=== PATIENT | female | born 1935 | race Caucasian/White ===

== ENCOUNTER 2016-09-03 23:10 | Observation (INO) ==
--- NOTE | 2016-09-04 00:43 | Emergency Department Note ---
Fall HPI - General Chief Complaint: Fall Stated Complaint: fell and hit head on the dresser Time Seen by Provider: 09/03/16 23:39 Source: patient, EMS Mode of arrival: EMS - History of Present Illness HPI Narrative: This patient has a peripheral neuropathy and says she's been getting weaker recently. She was being pushed in her walker last night and body gave out she fell hit the left side of her head against a dresser. He did not lose consciousness. She does state she's become too weak to be at home. She wants to stay in the hospital and perhaps go to a rehabilitation center. Complaint: fall Onset (ago): minute(s) Fall From: standing Fall Witnessed: yes, by family Place Fall Occurred: home Loss of Consciousness: none Prolonged Down Time?: no Symptoms Prior to Fall: other (muscle weakness) Location of injury: head Quality: dull, aching Associated symptoms (after fall): Reports: weakness - Related Data Home Medications Medication Instructions Recorded Confirmed aspirin 81 mg tablet,delayed 81 mg PO QDAY tab 12/11/14 08/30/16 release Omeprazole [Prilosec] 20 mg PO BIDAC 05/27/15 08/30/16 Melatonin 3 mg Tablet 3 mg PO HS 10/25/15 08/30/16 cholecalciferol (vitamin D3) 2,000 2,000 unit PO QDAY cap 08/22/16 08/30/16 unit capsule cyanocobalamin (vit B-12) 1,000 1,000 mcg PO QDAY 08/22/16 08/30/16 mcg tablet Previous Rx's Medication Instructions Recorded ipratropium-albuterol 0.5 mg-3 3 ml INHALATION Q4HP PRN #120 11/02/15 mg(2.5 mg base)/3 mL nebulization ampul.neb soln buspirone 10 mg tablet 10 mg PO BID #60 tab 02/04/16 levothyroxine 150 mcg tablet 150 mcg PO QDAY 90 Days 04/11/16 fenofibrate 160 mg tablet 160 mg PO QDAY 90 Days 05/09/16 diltiazem ER 360 mg 360 mg PO QDAY 30 Days 06/14/16 capsule,extended release Motorized power wheel chair #1 each 07/05/16 oxybutynin chloride ER 5 mg 5 mg PO QDAY #30 tab 07/12/16 tablet,extended release 24 hr estradiol 1 mg tablet 1 mg PO .2xweekly #24 tab 07/27/16 O2 Rack #1 each 08/01/16 sodium polystyrene sulfonate oral 30 g PO QDAY PRN #160 g 08/22/16 powder albuterol sulfate 2.5 mg/3 mL 2.5 mg CONTINUOUS NEBULIZATION Q4H 08/28/16 (0.083 %) solution for nebulization PRN 30 Days hydrocodone 5 mg-acetaminophen 325 1 tab PO Q6H PRN #100 tab 08/28/16 mg tablet lorazepam 0.5 mg tablet 0.5 mg PO BID PRN #60 tab 08/31/16 Allergies Allergy/AdvReac Type Severity Reaction Status Date / Time pregabalin [From Lyrica] Allergy Unknown Verified 08/30/16 15:07 gabapentin AdvReac "loopy" Verified 08/30/16 15:07 Review of Systems Constitutional: Denies: fever Eyes: Denies: eye pain ENT ED: Denies: ear pain Cardiovascular: Denies: chest pain Respiratory: Denies: cough Gastrointestinal: Denies: abdominal pain, nausea Genitourinary: Denies: urgency Musculoskeletal: Denies: back pain Integumentary: Denies: rash Neurological: Reports: headache, weakness Fall PMH - Past Medical History Medical history: Reports: atrial fibrillation, COPD, diabetes, GERD, hyperlipidemia, hypertension, osteoporosis, peripheral artery disease, renal disease, thyroid disease, valvular heart disease, other (recurrent esophageal stricture, aortic stenosisCOPD, esophageal motility disorder, anxiety, esophageal stricture, 3. CK D, osteoarthritis) Surgical history ED: Reports: appendectomy, cataract, colectomy, herniorrhaphy, knee replacement, pacemaker/AICD (carpal tunnel), NACHO/BSO, thyroidectomy, tonsillectomy, other (lung lobectomy) Psychiatric history: Reports: anxiety [employer] history: Reports: non-contributory - Social History Alcohol use: Reports: None Drug use: Reports: none Physical Exam - General Limitations: no limitations General appearance: alert, in no apparent distress - Head Head exam: atraumatic, normocephalic - Eye Eye exam: Present: normal appearance, PERRL, EOMI - ENT ENT exam: normal exam, normal oropharynx - Neck Neck exam: Present: normal inspection - Chest Chest inspection: Present: normal inspection - Respiratory Respiratory exam: Present: normal lung sounds bilaterally - Cardiovascular Cardiovascular exam: Present: regular rate, normal heart sounds - Abdominal Exam Abdominal exam: Present: soft. Absent: distention, tenderness - Neurological Exam Neurological exam: Present: alert, oriented X3 - Psychiatric Psychiatric exam: Present: normal affect, normal mood - Skin Skin exam: Present: warm, dry, intact Course Vital Signs Temperature 97.8 F 09/03/16 23:11 Pulse Rate 103 H 09/03/16 23:11 Respiratory Rate 18 09/03/16 23:11 Blood Pressure 163/66 09/03/16 23:11 Pulse Oximetry (%) 100 09/03/16 23:11 Temperature 97.8 F 09/03/16 23:11 Pulse Rate 96 H 09/04/16 08:48 Respiratory Rate 20 09/04/16 08:48 Blood Pressure 161/73 09/04/16 08:48 Pulse Oximetry (%) 100 09/04/16 08:48 Fall - [facility] Narrative Medical decision making narrative: This patient felt she was too weak to go home. She thinks her peripheral neuropathy is progressing. She does have a UTI and is anemic though that may be chronic. At this point utilization review and is trying to decide if she meets admission criteria.Final disposition per Dr. Garcia. - Lab Data Lab results reviewed: Yes I reviewed the patient's lab results. Result diagrams: 09/04/16 00:57 09/04/16 00:57 Lab Results 09/04/16 09/04/16 09/04/16 Range/Units 00:57 00:57 00:57 WBC 8.9 (4.5-11.0) K/mcL RBC 2.64 L (4.00-5.20) M/mcL Hgb 8.4 L (12.0-15.0) g/dL Hct 27.0 L (36.0-48.0) % MCV 102.4 H (80.0-100.0) fL MCH 31.8 (26.0-34.0) pg MCHC 31.1 (31.0-36.0) g/dL RDW 15.6 H (11.5-14.5) % Plt Count 198 (140-440) K/mcL MPV 8.4 (7.4-10.4) fL Gran % 76.2 (38.0-78.0) % Lymph % (Auto) 17.0 (15.5-49.0) % [place] % (Auto) 5.9 (1.0-9.0) % Eos % (Auto) 0.7 (0.0-7.0) % Baso % (Auto) 0.2 (0.0-2.0) % Gran # 6.8 (1.8-8.0) K/mcL Lymph # 1.5 (1.5-4.8) K/mcL [place] # 0.5 (0.1-0.9) K/mcL Eos # 0.1 (0.0-0.7) K/mcL Baso # 0 (0.0-0.3) K/mcL Sodium 140 (133-145) mmol/L Potassium 4.4 (3.3-5.1) mmol/L Chloride 101 (96-108) mmol/L Carbon Dioxide 31 H (22-30) mmol/L Anion Gap 8.0 (8-16) BUN 14 (8-23) mg/dl Creatinine 0.9 (0.6-1.1) mg/dl GFR Calculation 59 Glucose 107 H (70-105) mg/dL Calcium 8.9 (8.6-10.4) mg/dl Total Bilirubin 0.2 (0.0-1.0) mg/dL AST 19 (0-37) U/l ALT 9 (0-40) U/l Alkaline Phosphatase 47 (39-117) U/L Troponin T < 0.01 (0-0.03) ng/ml Total Protein 5.8 L (5.9-8.4) gm/dL Albumin 3.4 (3.2-5.2) gm/dL Globulin 2.4 (2.2-3.7) gm/dL Albumin/Globulin Ratio 1.4 (1.0-2.3) Vitamin B12 (243-894) pg/ml Folate (4.2-19.9) ng/mL Urine Color Urine Appearance Urine pH (5.0-9.0) Ur Specific [place] (1.000-1.035) Urine Protein (NEG) mg/dL Urine Glucose (UA) (NEG) mg/dL Urine Ketones (NEG) mg/dL Urine Occult Blood (<0.03) mg/dL Urine Nitrate (NEG) Urine Bilirubin (NEG) mg/dL Urine Urobilinogen (NEG) mg/dL Ur Leukocyte Esterase (NEG) /uL Urine RBC (0-1) /hpf Urine WBC (0-4) /hpf Ur Squamous Epith Cells (0-4) /hpf Ur Transition Epith Cell (0-2) /hpf Urine Bacteria (0) /hpf Urine Mucus (0) /hpf Ur Culture Indicated? 09/04/16 09/04/16 09/04/16 Range/Units 01:22 07:54 07:54 WBC (4.5-11.0) K/mcL RBC (4.00-5.20) M/mcL Hgb (12.0-15.0) g/dL Hct (36.0-48.0) % MCV (80.0-100.0) fL MCH (26.0-34.0) pg MCHC (31.0-36.0) g/dL RDW (11.5-14.5) % Plt Count (140-440) K/mcL MPV (7.4-10.4) fL Gran % (38.0-78.0) % Lymph % (Auto) (15.5-49.0) % [place] % (Auto) (1.0-9.0) % Eos % (Auto) (0.0-7.0) % Baso % (Auto) (0.0-2.0) % Gran # (1.8-8.0) K/mcL Lymph # (1.5-4.8) K/mcL [place] # (0.1-0.9) K/mcL Eos # (0.0-0.7) K/mcL Baso # (0.0-0.3) K/mcL Sodium (133-145) mmol/L Potassium (3.3-5.1) mmol/L Chloride (96-108) mmol/L Carbon Dioxide (22-30) mmol/L Anion Gap (8-16) BUN (8-23) mg/dl Creatinine (0.6-1.1) mg/dl GFR Calculation Glucose (70-105) mg/dL Calcium (8.6-10.4) mg/dl Total Bilirubin (0.0-1.0) mg/dL AST (0-37) U/l ALT (0-40) U/l Alkaline Phosphatase (39-117) U/L Troponin T (0-0.03) ng/ml Total Protein (5.9-8.4) gm/dL Albumin (3.2-5.2) gm/dL Globulin (2.2-3.7) gm/dL Albumin/Globulin Ratio (1.0-2.3) Vitamin B12 1725 H (243-894) pg/ml Folate 13.5 (4.2-19.9) ng/mL Urine Color Yellow Urine Appearance Hazy Urine pH 5.0 (5.0-9.0) Ur Specific [place] 1.009 (1.000-1.035) Urine Protein Neg (NEG) mg/dL Urine Glucose (UA) Negative (NEG) mg/dL Urine Ketones Neg (NEG) mg/dL Urine Occult Blood 0.2 A (<0.03) mg/dL Urine Nitrate Pos A (NEG) Urine Bilirubin Neg (NEG) mg/dL Urine Urobilinogen Neg (NEG) mg/dL Ur Leukocyte Esterase 500 A (NEG) /uL Urine RBC 3 H (0-1) /hpf Urine WBC 77 H (0-4) /hpf Ur Squamous Epith Cells 12 H (0-4) /hpf Ur Transition Epith Cell 2 (0-2) /hpf Urine Bacteria Few A (0) /hpf Urine Mucus Few (0) /hpf Ur Culture Indicated? No - Radiology Data Radiology results reviewed: Yes I reviewed the patient's radiology results. (CT of head was negative) Disposition Clinical Impression: Contusion, Urinary tract infection, Anemia Disposition: Home, Self-Care Condition: Good Instructions: Contusion in Adults (ED) Referrals: Modesto Rivas MD [Primary Care Provider] - Time of Disposition: 00:43
[2016-09-04 01:39] LABS: Basophils # (Auto) 0 K/mcL (0.0-0.3); Basophils % (Auto) 0.2 % (0.0-2.0); Eosinophils # (Auto) 0.1 K/mcL (0.0-0.7); Eosinophils % (Auto) 0.7 % (0.0-7.0); Granulocytes % (Auto) 76.2 % (38.0-78.0); Lymphocytes # (Auto) 1.5 K/mcL (1.5-4.8); Mean Cell Volume 102.4 fL (80.0-100.0); Mean Corpuscular HGB Conc 31.1 g/dL (31.0-36.0); Mean Corpuscular Hemoglobin 31.8 pg (26.0-34.0); Monocytes # (Auto) 0.5 K/mcL (0.1-0.9); Monocytes % (Auto) 5.9 % (1.0-9.0); Platelet Count 198 K/mcL (140-440); RBC 2.64 M/mcL (4.00-5.20); Red Cell Distribution Width 15.6 % (11.5-14.5)
[2016-09-04 01:48] LABS: Appearance,Urine HAZY; Bacteria,Urine FEW /hpf (0); Bilirubin,Urine NEG (NEG); Color,Urine YELLOW; Glucose,Urine (UA) NEGATIVE (NEG); Leukocyte Esterase,Urine 500 /uL (NEG); Mucus,Urine FEW /hpf (0); Nitrate,Urine POS (NEG); Protein,Urine NEG (NEG); Specific Gravity,Urine 1.009 (1.000-1.035); Urine Blood 0.2 mg/dL (<0.03); Urine RBC 3 /hpf (0-1); Urine Squamous Epithelial Cell 12 /hpf (0-4); Urine Transitional Epi Cells 2 /hpf (0-2); Urine WBC 77 /hpf (0-4); Urobilinogen,Urine NEG (NEG)
[2016-09-04 02:01] LABS: ALT/SGPT 9 U/l (0-40); Albumin 3.4 gm/dL (3.2-5.2); Albumin/Globulin Ratio 1.4 (1.0-2.3); Alkaline Phosphatase 47 U/L (39-117); Blood Urea Nitrogen 14 mg/dl (8-23)
--- NOTE | 2016-09-04 05:51 | XRay Report ---
CLINICAL INFORMATION: Fell. Head injury. TECHNIQUE: Upright AP chest x-ray COMPARISON: Previous chest x-ray dated 10/26/2015 FINDINGS: No acute pulmonary parenchymal infiltrate. No focal abnormality. No pulmonary contusion. No interval change. Heart size and mediastinum are negative. No detectable rib fracture. No hemothorax or pneumothorax. IMPRESSION: No acute abnormality. No interval change Interpreted and Authenticated by: Diomedes Tobar 09/04/16
--- NOTE | 2016-09-04 06:36 | Cat Scan Report ---
CLINICAL INFORMATION: Head injury COMPARISON: None. TECHNIQUE: Axial noncontrast-enhanced images through the brain. FINDINGS: No acute intracranial hemorrhage. No subdural or epidural hematoma. No subarachnoid hemorrhage. No intra-axial hematoma. There is white matter abnormality consistent with microvascular ischemic change. No localized mass effect. No midline shift. No focal abnormality. Brainstem and cerebellum are negative. No calvarial lesions. No fracture. Skull base is negative. Basilar cisterns are normal. Examination was initially interpreted by [facility] IMPRESSION: 1. No acute posttraumatic abnormality. 2. White matter abnormality consistent with small vessel ischemic change. Interpreted and Authenticated by: Diomedes Tobar 09/04/16
[2016-09-04] MEDS ORDERED: LEVOFLOXACIN 500 MG/100 ML BAG IV ONE (07:41)
[2016-09-04 09:08] LABS: Vitamin B12 1725 pg/ml (243-894)
[2016-09-04] MEDS ORDERED: ACETAMINOPHEN 325 MG TABLET PO ONE (10:27)
[2016-09-04] MEDS ORDERED: ACETAMINOPHEN (PP) 160 MG/5 ML BOTTLE (#120) PO ONE (10:34)
--- NOTE | 2016-09-04 11:20 | Internal Med History&Physical ---
Medical - H&P: HPI Patient information: Note initiated : 09/04/16 at 11:16 am Service Date, if different from initiated Date: [] Patient: Lacey Green a 81 y/o F admitted on for Fall, Hit Head On [place]. Chief Complaint: [] History of present illness: Ms. Green is a 81 year old female with a fairly extensive past medical history , including type 2 diabetes with significant peripheral neuropathy. the patient has long-standing issues with numbness of her feet and legs up to as high as her thighs. She was treated with Lyrica in the past, but had a bad reaction to that. She says she was taking gabapentin, but stopped that because it was causingher to feel loopy. However her neuropathy pain got so bad that she did go back on it. she notes that over the last couple of months she's had increasing problems controlling her legs. She says they just seem to give out sometimes when she stands for too long. Yesterdayher was trying to get her out of bed to forget to her walker and she says her whole body just suddenly felt limp and she fell overonto the floor, and hit her head. He brought her into the emergency room late last night for evaluation. She says her vision felt a little blurry just after the fall, but not so much now. ER evaluation was suggestive of possible urinary tract infection, but there were no signs of severe infection or sepsis. the patient otherwise denies recent fever or chills, headaches or dizziness new eye or ear symptoms, sore throat or cough. She does have chronic dysphasia related to a stricture, and basically eats only a liquid diet. She has some chronic palpitations, which are unchanged, but denies chest pain orlightheadedness with standing or with exertion. She denies shortness of breath or cough, and denies a history of COPD. However she does have an inhaler that she is able to use when necessary. She denies abdominal pain, nausea or vomiting, diarrhea or constipation, rectal bleeding dysuria. She does report that her doctor told her recently she has anemia, but she is unaware of the workup so far. She does not believe that she has done stool cards. She believes she had a colonoscopy about 10 years ago. She is also followed by Dr. Barth for chronic kidney disease. She has a history of diabetes, but says that essentially resolved, and she no longer takes medications for it. Her only recent vaccine was a flu shot before . [facility] Medical History Acute hypercapnic respiratory failure (Acute) Acute respiratory failure with hypoxia and hypercapnia (Acute) Anemia (Acute 12/01/14) Hb 10.6, started on iron supplements, will recheck Hb and iron stores on follow up Anxiety (Acute) Aortic stenosis (Acute) murmur Benign neoplasm of colon (Acute) COPD (chronic obstructive pulmonary disease) (Acute) Community acquired pneumonia (Acute) Degenerative joint disease (Acute) Right Hip Diabetes mellitus, type II (Acute) Dysphagia (Acute) Emphysematous COPD (Acute) Esophageal stricture (Acute 05/07/14) Esophageal stricture (Acute) Foreign body (Acute) Gastroesophageal reflux (Acute) h/o stricture Gout (Acute) History of esophageal stricture (Acute) Hyperkalemia (Acute) Hyperlipidemia (Acute) Hypothyroidism (acquired) (Acute) 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 3ml/min in the setting of volume depletion - ensure adequate fluid intake monitor Chronic kidney disease, stage III (moderate) (Chronic) Esophageal motility disorder (Chronic) Abnormal esophageal motility with very little peristalsis and a lower esophageal sphincter that has been dilated with a 30 mm achalasia balloon dilator. Hypercalcemia (Chronic) Her serum Ca is high normal she is on 2000 units Vit D Plan: Vit D decreased to 1000 units daily ensure adequate hydration Hyperkalemia (Chronic) Hypertension, essential (Chronic) Hypertensive renal disease (Chronic) Surgical History H/O carpal tunnel repair (Acute) History of adenoidectomy (Acute) History of colectomy (Acute) PARTIAL History of hernia surgery (Acute) HIATAL HERNIA REPAIR History of hysterectomy (Acute) NACHO/BSO History of intraocular lens implant (Acute) BILATERAL History of knee surgery (Acute) L TKA History of lobectomy of lung (Acute) LLL History of lumbar discectomy (Acute) History of tonsillectomy (Acute) History of total thyroidectomy (Acute) History of colonoscopy (Chronic 08/16/15) History of esophagogastroduodenoscopy (Chronic 03/31/16) 12/06/15, 05/07/14 Slight stricture EG junction History of esophagogastroduodenoscopy (EGD) (Chronic 07/28/16) 05/11/16 Medication List--medications are not yet updated. albuterol sulfate 2.5 mg Continuous Nebulization Q4H 30 days PRN aspirin 81 mg PO QDAY buspirone 10 mg PO BID cholecalciferol (vitamin D3) 2,000 units PO QDAY cyanocobalamin (vit B-12) (Vitamin B-12) 1,000 mcg PO QDAY diltiazem ER (Taztia XT) 360 mg PO QDAY 30 days estradiol 1 mg PO .2xweekly fenofibrate 160 mg PO QDAY 3 months hydrocodone-acetaminophen 5-325 mg 1 tab PO Q6H PRN ipratropium-albuterol 0.5 mg-3 mg(2.5 mg base)/3 mL 3 mL Inhalation Q4HP PRN levothyroxine (Synthroid) 150 mcg PO QDAY 90 days lorazepam (Ativan) 0.5 mg PO BID PRN [Melatonin 3 mg Tablet 3 mg PO HS] [Motorized power wheel chair ] [O2 Rack ] omeprazole 20 mg PO BIDAC oxybutynin chloride ER 5 mg PO QDAY sodium polystyrene sulfonate oral powder (Kayexalate oral powder) 30 grams PO QDAY PRN Allergies/Adverse Reactions pregabalin [From Lyrica] Allergy (Verified 08/30/16 15:07) Unknown gabapentin Adverse Reaction (Verified 08/30/16 15:07) "loopy"--but has started taking this again. Family History Unknown Diabetes mellitus Essential hypertension Siblings Osteoarthritis Mother Osteoporosis Social History smoking status: Former smoker alcohol intake frequency: former alcohol drinker -the patient is and lives with her . he does not currently use alcohol, tobacco, drugs. Medical - H&P: Meds Home Medications Medication Instructions Recorded Confirmed Type aspirin 81 mg tablet,delayed 81 mg PO QDAY tab 12/11/14 08/30/16 History release Omeprazole [Prilosec] 20 mg PO BIDAC 05/27/15 08/30/16 History Melatonin 3 mg Tablet 3 mg PO HS 10/25/15 08/30/16 History ipratropium-albuterol 0.5 mg-3 3 ml INHALATION Q4HP PRN #120 11/02/15 08/30/16 Rx mg(2.5 mg base)/3 mL nebulization ampul.neb soln buspirone 10 mg tablet 10 mg PO BID #60 tab 02/04/16 08/30/16 Rx levothyroxine 150 mcg tablet 150 mcg PO QDAY 90 Days 04/11/16 08/30/16 Rx fenofibrate 160 mg tablet 160 mg PO QDAY 90 Days 05/09/16 08/30/16 Rx diltiazem ER 360 mg 360 mg PO QDAY 30 Days 06/14/16 08/30/16 Rx capsule,extended release Motorized power wheel chair #1 each 07/05/16 08/30/16 Rx oxybutynin chloride ER 5 mg 5 mg PO QDAY #30 tab 07/12/16 08/30/16 Rx tablet,extended release 24 hr estradiol 1 mg tablet 1 mg PO .2xweekly #24 tab 07/27/16 08/30/16 Rx O2 Rack #1 each 08/01/16 08/30/16 Rx cholecalciferol (vitamin D3) 2,000 2,000 unit PO QDAY cap 08/22/16 08/30/16 History unit capsule cyanocobalamin (vit B-12) 1,000 1,000 mcg PO QDAY 08/22/16 08/30/16 History mcg tablet sodium polystyrene sulfonate oral 30 g PO QDAY PRN #160 g 08/22/16 08/30/16 Rx powder albuterol sulfate 2.5 mg/3 mL 2.5 mg CONTINUOUS NEBULIZATION Q4H 08/28/16 Rx (0.083 %) solution for nebulization PRN 30 Days hydrocodone 5 mg-acetaminophen 325 1 tab PO Q6H PRN #100 tab 08/28/16 08/30/16 Rx mg tablet lorazepam 0.5 mg tablet 0.5 mg PO BID PRN #60 tab 08/31/16 08/31/16 Rx Allergies Allergy/AdvReac Type Severity Reaction Status Date / Time pregabalin [From Lyrica] Allergy Unknown Verified 08/30/16 15:07 Medical - H&P: Exam - Constitutional Vitals: Temp Pulse Resp BP Pulse Ox 97.8 F 96 H 20 160/68 100 09/04/16 10:35 09/04/16 10:42 09/04/16 10:42 09/04/16 10:42 09/04/16 10:42 Exam: on exam, she is a pleasant elderly female, in no acute distress.Head: Normocephalic and atraumatic. Ears: TMs and canals are clear.. There is a small hematoma on her left earlobe , from her recent fall. Eyes: PERRLA, EOMI, anicteric. Pharynx: Is clear. She has a full upper and partial lower plate. Neck: Appears supple, without obvious lymphadenopathy, JVD, thyromegaly, bruits. Cardiac exam: Shows regular rate and rhythm with 2/6 systolic ejection murmur No rubs or gallops are noted.there is some bruising noted on her left posterior chest. Lungs: Breath sounds are normal on the right side. Left base has what sounds like crackles and gargles. abdomen: Soft and nontender without obvious masses. Bowel sounds are active. Extremities: show no cyanosis, clubbing, edema. Neurologic: Patient is alert and oriented 3. Mood and affect appear normal. cranial nerves are grossly intact. Motor exam shows probable 4 out of 5 strength throughout. Cerebellar exam shows no pronator drift and intact finger- to-finger exam. mild intention tremor is noted. Deep tendon reflexes seem generally depressed. Toes are upgoing to plantar stimulation Medical - H&P: Reslt - Labs CBC & Chem 7: 09/04/16 00:57 09/04/16 00:57 Labs: Short CBC 09/04/16 Range/Units 00:57 WBC 8.9 (4.5-11.0) K/mcL Hgb 8.4 L (12.0-15.0) g/dL Hct 27.0 L (36.0-48.0) % Plt Count 198 (140-440) K/mcL BMP 09/04/16 00:57 Sodium 140 Potassium 4.4 Chloride 101 Carbon Dioxide 31 H BUN 14 Creatinine 0.9 Glucose 107 H Calcium 8.9 Cardiac Enzymes 09/04/16 Range/Units 00:57 Troponin T < 0.01 (0-0.03) ng/ml Liver Function 09/04/16 Range/Units 00:57 Total Bilirubin 0.2 (0.0-1.0) mg/dL AST 19 (0-37) U/l ALT 9 (0-40) U/l Alkaline Phosphatase 47 (39-117) U/L Albumin 3.4 (3.2-5.2) gm/dL Urine 09/04/16 Range/Units 01:22 Urine Color Yellow Urine Appearance Hazy Urine pH 5.0 (5.0-9.0) Ur Specific [place] 1.009 (1.000-1.035) Urine Protein Neg (NEG) mg/dL Urine Glucose (UA) Negative (NEG) mg/dL urinalysis is positive for nitrates and leukocyte esterase with 77 white blood cells on micro-and 12 squamous epithelial cells eKG shows sinus rhythmat a rate of about 90with nonspecific ST-T changes noted in leads 3 and F hest x-ray shows no acute abnormalities dry head CT shows nonspecific microvascular ischemia, but no other acute changes. Medical - H&P: A/P (1) Weakness of both lower extremities Current visit: Yes Status: Acute (2) Fall Current visit: Yes Status: Acute (3) Acute head trauma Current visit: Yes Status: Acute (4) Abnormal urinalysis Current visit: Yes Status: Acute (5) Anemia Problem details: Hb 10.6, started on iron supplements, will recheck Hb and iron stores on follow up Current visit: No Status: Acute (6) COPD (chronic obstructive pulmonary disease) Current visit: No Status: Acute - Narrative A/P Narrative: #1. Neurologic. -Patient presents after a fall with head trauma. Head CT was reported as negative. The patient reports progressive weakness and worsening of her peripheral neuropathy. She is actually describing progressive weakness of her legs for the last 2 months, so I'm not sure that can be blamed on her neuropathy. It sounds to me like she needs to have some imaging done of her lumbar spine or even her cervical spine. I suggested to her that she will need to have a consultation with a neurologist, to look into these symptoms further. -Admit for observation and physical therapy evaluation regarding safety and ambulation.. #2. /infectious diseases.. -Patient has an abnormal urinalysis, and this needs to be sent for culture. I will also check blood cultures and cover with IV Rocephin pending results. #3. Type 2 diabetes- accu-Cheks and sliding scale insulin when necessary #4. CODE STATUS;she confirms a DNR order. #5. DVT prophylaxis: Subcutaneous heparin #6. Pulmonary. History of COPD?? . Continue bronchodilators and when necessary oxygen. #7. Cardiac. History of hypertension- controlled. #8. Hematologic. -patient has chronic anemia, but this seems quite a bit worse today. We will need to guaiac stools, and monitor closely. She might need transfusion. At least part of this is likely related to her chronic kidney disease,ut she believes she hasn't had further workup lately This may need to be referred back to her primary care physician.. #9. History of aortic stenosis. She denies episodes of chest painor lightheadedness. #10. GI. -history of esophageal stricture. She does generally follow a liquid diet. #11. Renal. History of chronic kidney disease and hyperkalemia. She is followed by Dr. Barth. this visit took approximately 60 minutes, to review the patient's extensive records, review her case with the ER Vanessa, interview and examine her, and write orders.
[2016-09-04] MEDS ORDERED: ALBUTEROL SULFATE 2.5 MG/3 ML NEBULIZER NEB PRN (13:00)
[2016-09-04] MEDS ORDERED: DEXTROSE 50% 50 ML VIAL IV PRN (13:00)
[2016-09-04] MEDS: cefTRIAXone 1 GM in DEXTROSE 5% IN WATER 50 ML IV SCH (13:13)
[2016-09-04] MEDS: INSULIN LISPRO 1 UNIT/0.01 ML UNIT SQ SCH ×3 (13:18→22:05)
[2016-09-04 14:28] LABS: ALT/SGPT 10 U/l (0-40); Albumin 3.5 gm/dL (3.2-5.2); Albumin/Globulin Ratio 1.5 (1.0-2.3); Alkaline Phosphatase 43 U/L (39-117); Blood Urea Nitrogen 13 mg/dl (8-23)
[2016-09-04] MEDS: 0.9 % SODIUM CHLORIDE 10 ML SYRINGE IV SCH ×2 (14:32→22:22)
[2016-09-04] MEDS: IPRATROPIUM/ALBUTEROL 3 ML AMPUL.NEB NEB SCH ×2 (15:01→21:06)
[2016-09-04] MEDS: HYDROcodone/APAP 5/325MG TABLET PO PRN ×2 (16:53→21:54)
[2016-09-04] MEDS ORDERED: HYDROcodone/APAP 5/325MG TABLET PO PRN (20:49)
[2016-09-04] MEDS ORDERED: busPIRone 10 MG TABLET PO SCH (21:00)
[2016-09-04] MEDS: busPIRone 5 MG TABLET PO SCH (21:53)
[2016-09-04] MEDS: LORazepam 0.5 MG TABLET PO PRN (21:53)
[2016-09-04] MEDS: GABAPENTIN 100 MG CAPSULE PO SCH (21:53)
[2016-09-04] MEDS: HEPARIN 5,000 UNIT/ML VIAL SQ SCH (21:54)
[2016-09-05 05:28] LABS: Basophils # (Auto) 0 K/mcL (0.0-0.3); Basophils % (Auto) 0.3 % (0.0-2.0); Eosinophils # (Auto) 0 K/mcL (0.0-0.7); Eosinophils % (Auto) 0.6 % (0.0-7.0); Granulocytes % (Auto) 62.8 % (38.0-78.0); Lymphocytes # (Auto) 1.8 K/mcL (1.5-4.8); Lymphocytes % (Auto) 28.2 % (15.5-49.0); Mean Cell Volume 103.2 fL (80.0-100.0); Mean Corpuscular HGB Conc 31.5 g/dL (31.0-36.0); Mean Corpuscular Hemoglobin 32.5 pg (26.0-34.0); Monocytes # (Auto) 0.5 K/mcL (0.1-0.9); Monocytes % (Auto) 8.1 % (1.0-9.0); Platelet Count 178 K/mcL (140-440); RBC 2.48 M/mcL (4.00-5.20)
[2016-09-05 05:52] LABS: ALT/SGPT 9 U/l (0-40); Albumin 3.2 gm/dL (3.2-5.2); Albumin/Globulin Ratio 1.4 (1.0-2.3); Alkaline Phosphatase 42 U/L (39-117); Bilirubin,Direct < 0.2 mg/dL (0.0-0.3); Blood Urea Nitrogen 13 mg/dl (8-23); Gamma Glutamyl Transpeptidase 11 U/L (5-36); Magnesium 1.5 mg/dL (1.6-2.5); Phosphorous 4.4 mg/dL (2.7-4.5); Uric Acid 5.6 mg/dL (2.5-8.0)
[2016-09-05] MEDS: 0.9 % SODIUM CHLORIDE 10 ML SYRINGE IV SCH ×3 (06:14→20:16)
[2016-09-05] MEDS: IPRATROPIUM/ALBUTEROL 3 ML AMPUL.NEB NEB SCH ×3 (07:12→19:42)
[2016-09-05] MEDS: LEVOTHYROXINE 150 MCG TABLET PO SCH (07:14)
[2016-09-05] MEDS: HYDROcodone/APAP 5/325MG TABLET PO PRN ×2 (07:14→20:15)
[2016-09-05] MEDS: PANTOPRAZOLE 40 MG TABLET PO SCH ×2 (07:14→16:49)
[2016-09-05] MEDS: INSULIN LISPRO 1 UNIT/0.01 ML UNIT SQ SCH ×4 (07:15→20:18)
[2016-09-05] MEDS ORDERED: OMEPRAZOLE 20 MG CAPSULE PO SCH (07:30)
[2016-09-05] MEDS: ASPIRIN 81 MG TAB.CHEW PO SCH (08:56)
[2016-09-05] MEDS: busPIRone 5 MG TABLET PO SCH ×2 (08:56→20:15)
[2016-09-05] MEDS: GABAPENTIN 100 MG CAPSULE PO SCH ×2 (08:56→20:14)
[2016-09-05] MEDS: HEPARIN 5,000 UNIT/ML VIAL SQ SCH ×2 (08:57→20:17)
[2016-09-05] MEDS: DILTIAZEM 180 MG CAP.XL.24H PO SCH (08:57)
[2016-09-05] MEDS: cefTRIAXone 1 GM in DEXTROSE 5% IN WATER 50 ML IV SCH (09:03)
[2016-09-05] MEDS: FENOFIBRATE 145 MG PO SCH (09:56)
[2016-09-05] MEDS ORDERED: LORazepam 2 MG/ML VIAL IV ONE (11:25)
[2016-09-05] MEDS ORDERED: MAGNESIUM SULFATE 2 GM/50 ML BAG IV ONE (12:36)
--- NOTE | 2016-09-05 12:40 | Internal Med Progress Note ---
Medical - PN: Subj Patient information: Note initiated : 09/05/16 at 12:36 pm Service Date, if different from initiated Date: [] Patient: Lacey Green a 81 y/o F admitted on 09/04/16 for Fall, Hit Head On [place]/Contusion, UTI, Anemia. Chief Complaint: [] Interval history: 09/04 - Ms. Green is a 81 year old female with a fairly extensive past medical history, including type 2 diabetes with significant peripheral neuropathy. the patient has long-standing issues with numbness of her feet and legs up to as high as her thighs. She was treated with Lyrica in the past, but had a bad reaction to that. She says she was taking gabapentin, but stopped that because it was causingher to feel loopy. However her neuropathy pain got so bad that she did go back on it.she notes that over the last couple of months she's had increasing problems controlling her legs. She says they just seem to give out sometimes when she stands for too long. Yesterdayher was trying to get her out of bed to forget to her walker and she says her whole body just suddenly felt limp and she fell overonto the floor, and hit her head. He brought her into the emergency room late last night for evaluation. She says her vision felt a little blurry just after the fall, but not so much now. ER evaluation was suggestive of possible urinary tract infection, but there were no signs of severe infection or sepsis. 09/05 Pt seen examined, doing well, no acute overnight events ,still is weak in the legs. She notes that she is still unable to walk by her self without risk of falling, Her bproblems she reports that is chr but has had a acute worsening over the last week or two. Exam today showed lower extremity strength of 3/5, and present sensation to gross touch, but absent reflex (has neuropathy). No loss of bowel or bladder continence. Its likely that UTI is the likely reason for worsening of her overall strength as well as lower extremity strenght, but I would like to r/o any lumbar pathology. The patient also wants a LS spine MRI to evaluate if there is any compression. Plan to get MRI today, Continue IV rocephin d2 today. Pertinent ROS: Denies headache, dizziness Denies chest pain, palpitations Denies cough or shortness of breath Denies abdominal pain, nausea or vomiting. - Constitutional Vitals: Vital Signs Temp Pulse Resp BP Pulse Ox 97.7 F 77 22 133/61 94 09/05/16 12:00 09/05/16 12:00 09/05/16 12:00 09/05/16 12:00 09/05/16 12:00 Period Temp Pulse Resp BP Sys/Lara Pulse Ox Last 24 Hr 97.1 F-98.7 F 77-113 14-24 133-158/58-78 94-100 Intake and Output 09/04/16 09/05/16 09/05/16 21:59 05:59 13:59 Intake Total 600 / 600 200 / 200 360 / 360 Output Total Balance 596 / 596 199 / 199 359 / 359 Weight 190 lb Intake & Output: Intake & Output 09/04/16 09/05/16 09/05/16 21:59 05:59 13:59 Intake Total 600 / 600 200 / 200 360 / 360 Output Total Balance 596 / 596 199 / 199 359 / 359 Weight 190 lb Intake: Oral 600 / 600 200 / 200 360 / 360 Output: # of times incontinent of urine Other: Meal Dinner Breakfast Percent of Meal Consumed 100% 100% Feeding Ability Independent Independent Exam: Constitutional; Afebrile, cooperative, alert, not in distress. Eyes- No icterus, Pupils equal, reactive, No periorbital swelling Ears- Ext ear normal, hearing normal to conversation. Neck- Midline trachea, supple Respiratory system: Air Entry equal on both sides, No crackles or wheezing, no rhonchi. CVS- Rate rhythm regular, S1,S2 heard, no gallop, no rub. Abdomen- Soft nontender abdomen, no organomegaly, no tenderness, no guarding or rigidity, SMOCKER- AOOx3, moving all extremities, no focal deficit noted. Lower extremity strenght 3/5 in all joints, absent reflex, Sensation normal to touch. Medical - PN: Obj Da - Labs CBC & Chem 7: 09/05/16 04:10 09/05/16 04:10 Labs: Abnormal Lab Results 09/05/16 09/05/16 09/04/16 04:10 04:10 13:10 RBC 2.48 L Hgb 8.1 L Hct 25.6 L MCV 103.2 H RDW 16.0 H Carbon Dioxide 33 H 34 H Anion Gap 7.0 L Magnesium 1.5 L Total Protein 5.5 L 5.8 L Triglycerides 212 H Meds: Medications Acetaminophen/Hydrocodone Bitart ([place] 5/325mg) 1 tab PO Q6HP PRN PRN Reason: Pain Last Admin: 09/05/16 07:14 Dose: 1 tab Albuterol Sulfate (Ventolin) 2.5 mg NEB Q2HP PRN PRN Reason: Shortness Of Breath Albuterol/Ipratropium (Duoneb) 3 ml NEB TID [facility] Last Admin: 09/05/16 07:12 Dose: 3 ml Aspirin (Aspirin) 81 mg PO DAILY [facility] Last Admin: 09/05/16 08:56 Dose: 81 mg Buspirone HCl (Buspar) 10 mg PO BID [facility] Last Admin: 09/05/16 08:56 Dose: 10 mg Dextrose (Dextrose 50%) 0 ml IV UD PRN PRN Reason: Hypoglycemia Diagnostic Test (Pha) (Accu-Chek) 1 each FS ACHS [facility] Last Admin: 09/05/16 11:19 Dose: 1 each Diltiazem HCl (Cardizem Cd) 360 mg PO DAILY [facility] Last Admin: 09/05/16 08:57 Dose: 360 mg Gabapentin (Neurontin) 200 mg PO BID [facility] Last Admin: 09/05/16 08:56 Dose: 200 mg Heparin Sodium (Porcine) (Heparin) 5,000 unit SQ Q12 [facility] Last Admin: 09/05/16 08:57 Dose: 5,000 unit Ceftriaxone Sodium 1 gm/ (Dextrose) 50 mls @ 100 mls/hr IV Q24H [facility] Last Admin: 09/05/16 09:03 Dose: 100 mls/hr Insulin Human Lispro (Humalog) 0 unit SQ ACHS [facility] PRN Reason: Protocol Last Admin: 09/05/16 11:20 Dose: Not Given Levothyroxine Sodium (Synthroid) 150 mcg PO QAMAC [facility] Last Admin: 09/05/16 07:14 Dose: 150 mcg Lorazepam (Ativan) 0.5 mg PO BIDP PRN PRN Reason: anxiety Last Admin: 09/04/16 21:53 Dose: 0.5 mg Fenofibrate [Lofibra (] 145 Mg Tablet) 145 mg PO QDAY [facility] Last Admin: 09/05/16 09:56 Dose: 145 mg Pantoprazole Sodium (Protonix) 40 mg PO BIDAC [facility] Last Admin: 09/05/16 07:14 Dose: 40 mg Sodium Chloride (Saline Flush) 10 ml IV Q8 [facility] Last Admin: 09/05/16 06:14 Dose: 10 ml Medical - PN: A/P - Time Spent With Patient Total time spent is greater than 50% in coordination of care (as documented) at patient's floor/unit and/or counseling patient: (1) Urinary tract infection Status: Acute Current Visit: Yes (2) Weakness of both lower extremities Status: Acute Current Visit: Yes (3) Diabetes mellitus, type II Status: Acute Current Visit: No (4) Emphysematous COPD Status: Acute Current Visit: No - Narrative A/P Narrative: IV antibiotics for UTI GEt MRI for lower extremity weakness, continue with PT Consider ABG if MRI is negative to r/o co2 retention, the patient has had h/o co2 retention in the past and has elevated bicarb level. IV mag sulphate for hypomagnesemia Anemia- Low hb is chr, elevated mch, b12 is normal, Medical - PN: Qual - VTE Deep Vein Thrombosis/Pulmonary Embolism Present on Admission: No
--- NOTE | 2016-09-05 15:55 | Magnetic Resonance Report ---
CLINICAL INFORMATION: Lower back pain. Bilateral lower extremity weakness. Symptoms are chronic. TECHNIQUE: Sagittal, axial, coronal images of the lumbar spine COMPARISON: None. FINDINGS: T12-L1, L1-L2, L2-L3, L3-L4 discs are unremarkable. Normal disc heights. No significant disc narrowing. No focal disc herniations. No spinal canal or foraminal stenoses. Degenerative disc disease at L4-L5. There is disc narrowing and decreased intradiscal signal. There is facet arthropathy with osseous and ligamentous hypertrophy. There is L4-L5 anterolisthesis due to facet arthropathy. No significant spinal canal stenosis. There is bilateral L4 foraminal stenosis. Degenerative disc disease at L5-S1. There is disc narrowing. No focal herniation. Spinal canal or foraminal stenosis. No compression deformities. No pathologic marrow replacement. Sacrum is negative. No bone marrow edema. No insufficiency fracture. Conus medullaris and cauda equina are negative. No epidural abnormality. No paraspinal soft tissue mass. There are renal cysts. IMPRESSION: 1. Multilevel degenerative disc disease and facet arthropathy. 2. Severe degenerative disc disease at L4-L5. There is facet arthropathy with anterolisthesis and bilateral L4 foraminal stenosis 3. Degenerative disc disease at L5-S1. No disc herniation. Interpreted and Authenticated by: Diomedes Tobar 09/05/16
[2016-09-05] MEDS: LORazepam 0.5 MG TABLET PO PRN (20:15)
[2016-09-06] MEDS: HYDROcodone/APAP 5/325MG TABLET PO PRN ×2 (03:42→08:09)
[2016-09-06 06:02] LABS: Basophils # (Auto) 0 K/mcL (0.0-0.3); Basophils % (Auto) 0.4 % (0.0-2.0); Eosinophils # (Auto) 0.1 K/mcL (0.0-0.7); Eosinophils % (Auto) 1.1 % (0.0-7.0); Granulocytes % (Auto) 58.1 % (38.0-78.0); Lymphocytes # (Auto) 2.1 K/mcL (1.5-4.8); Lymphocytes % (Auto) 32.1 % (15.5-49.0); Mean Cell Volume 102.7 fL (80.0-100.0); Mean Corpuscular HGB Conc 31.7 g/dL (31.0-36.0); Mean Corpuscular Hemoglobin 32.5 pg (26.0-34.0); Monocytes # (Auto) 0.5 K/mcL (0.1-0.9); Monocytes % (Auto) 8.3 % (1.0-9.0); Platelet Count 187 K/mcL (140-440); RBC 2.63 M/mcL (4.00-5.20); Red Cell Distribution Width 16.1 % (11.5-14.5)
[2016-09-06 06:16] LABS: ALT/SGPT 10 U/l (0-40); Albumin 3.3 gm/dL (3.2-5.2); Albumin/Globulin Ratio 1.3 (1.0-2.3); Alkaline Phosphatase 44 U/L (39-117); Bilirubin,Direct < 0.2 mg/dL (0.0-0.3); Blood Urea Nitrogen 12 mg/dl (8-23); Gamma Glutamyl Transpeptidase 14 U/L (5-36); Magnesium 1.8 mg/dL (1.6-2.5); Phosphorous 4.4 mg/dL (2.7-4.5); Uric Acid 5.8 mg/dL (2.5-8.0)
[2016-09-06] MEDS: 0.9 % SODIUM CHLORIDE 10 ML SYRINGE IV SCH (06:16)
[2016-09-06] MEDS: INSULIN LISPRO 1 UNIT/0.01 ML UNIT SQ SCH ×2 (06:42→11:05)
[2016-09-06] MEDS: LEVOTHYROXINE 150 MCG TABLET PO SCH (06:42)
[2016-09-06] MEDS: PANTOPRAZOLE 40 MG TABLET PO SCH (06:42)
[2016-09-06] MEDS: FENOFIBRATE 145 MG PO SCH (08:08)
[2016-09-06] MEDS: ASPIRIN 81 MG TAB.CHEW PO SCH (08:08)
[2016-09-06] MEDS: DILTIAZEM 180 MG CAP.XL.24H PO SCH (08:08)
[2016-09-06] MEDS: HEPARIN 5,000 UNIT/ML VIAL SQ SCH (08:08)
[2016-09-06] MEDS: busPIRone 5 MG TABLET PO SCH (08:09)
[2016-09-06] MEDS: GABAPENTIN 100 MG CAPSULE PO SCH (08:09)
[2016-09-06] MEDS: cefTRIAXone 1 GM in DEXTROSE 5% IN WATER 50 ML IV SCH (09:32)
[2016-09-06] MEDS: IPRATROPIUM/ALBUTEROL 3 ML AMPUL.NEB NEB SCH (09:37)
--- NOTE | 2016-09-06 13:00 | Discharge Summary ---
Medical - DS: Prov Patient information: Note initiated : 09/06/16 at 12:58 pm Service Date, if different from initiated Date: [] Patient: Lacey Green 81 y/o F admitted on 09/04/16 for Fall, Hit Head On [place]/Contusion, UTI, Anemia. Chief Complaint: [] Date of admission: 09/04/16 12:25 Discharge date: 09/06/16 Primary care physician: [f_Reg Prim Care Provider] Admitting clinician: Annabel Germain Discharging clinician: Althea Osman Medical - DS: Meds - Discharge Medications Prescriptions: Cefuroxime [Ceftin] 500 mg PO Q12 #10 tablet Active and Home Medications: Home Medications aspirin 81 mg tablet,delayed release 81 mg PO QDAY tab 12/11/14 [History Confirmed 09/04/16 Last Taken 09/03/16 09:00] Omeprazole [Prilosec] 20 mg PO BIDAC 05/27/15 [History Confirmed 09/04/16 Last Taken 09/03/16 09:00] Melatonin 3 mg Tablet 5 mg PO HS 10/25/15 [History Confirmed 09/04/16 Last Taken 09/02/16 21:00] buspirone 10 mg tablet 10 mg PO BID #60 tab 02/04/16 [Rx Confirmed 09/04/16 Last Taken 09/03/16 09:00] levothyroxine 150 mcg tablet 150 mcg PO QDAY 90 Days 04/11/16 [Rx Confirmed Last Taken 09/03/16 08:00] fenofibrate 160 mg tablet 160 mg PO QDAY 90 Days 05/09/16 [Rx Confirmed Last Taken 09/03/16 09:00] lorazepam 0.5 mg tablet 0.5 mg PO BID PRN #60 tab 08/31/16 [Rx Confirmed Last Taken 08/30/16 21:00] Diltiazem HCl [Taztia Xt] 360 mg PO DAILY 09/04/16 [History Confirmed 09/04/16 Last Taken 09/03/16 09:00] Estradiol [Estrace] 2 mg PO .2xweekly 09/04/16 [History Confirmed 09/04/16 Last Taken Unknown] Gabapentin [Neurontin] 200 mg PO BID 09/04/16 [History Confirmed 09/04/16 Last Taken 09/03/16 09:00] HYDROcodone/APAP 5/325MG [[place]ue 5/325Mg] 1 tab PO QIDP PRN 09/04/16 [History Confirmed 09/04/16 Last Taken 09/04/16 16:00] Medical - DS: Hosp Hospital course: Mrs Green is a 81 year old female with a extensive medial history presented to the ER with weakness in he lower extremity. UA Suggestive of UTI, Admitted for further evaluation and treatment. Weakness- Stan[place]law lower extremity weakness, progressive in nature as per family and patient. CT head was negative for any acute process. patients MRI LS spine neg for compressive etiolgy. The patient has h/o DM which can present as neuropathy. Her concurrent UTI will also make her weakness more apparent. The patient may benefit from evaluation by a neurologist as outpatient if she does not improve after antibiotic treatment and PT. Given her age, consideration to a paraneoplastic process as an underlying eitolgoy for her weakness should be considered. I will leave this to the discretion of the primary provider. UTI- Urine cx is gram neg bacillus. Was treated with rocpehin, will be d/c on cefuroxime for additional 5 days. COPD- Chr stable, her ABG done shows ph 7.38 PC2 70, Po2 54 on RA, which is chr retention. continue home medications as before. She will continue with supplemental oxygen therapy. Her goal so2 is 88-90%. The patient has home PT set up, we will try to set up additional help at her home. the rest of the patient stay was uneventful. No changes to home medications done. Discharge diagnosis: UTI/ Lower extremity weakness - Time Spent with Patient Total time spent providing and/or coordinating discharge services: Greater than 30 minutes Medical - DS: Exam - Constitutional Vitals: Vital Signs Temp Pulse Pulse Resp BP BP Pulse Ox 09/06/16 12:00 98.5 F 18 100/68 99 09/06/16 09:39 90 12 90 09/06/16 09:13 16 97 09/06/16 07:25 97.9 F 16 159/73 97 09/06/16 03:51 97.5 F L 93 H 16 176/77 99 09/06/16 00:00 97.3 F L 91 H 20 147/73 97 09/05/16 19:45 94 H 20 09/05/16 19:44 97.6 F 94 H 22 164/79 94 09/05/16 19:40 97 09/05/16 15:40 98.6 F 99 H 20 145/72 93 Intake and Output 09/05/16 09/06/16 09/06/16 21:59 05:59 13:59 Intake Total 490 / 490 520 / 520 300 / 300 Output Total 2 / Balance 489 / 489 518 / 518 300 / 300 Intake: IV 50 / 50 Oral 440 / 440 520 / 520 300 / 300 Output: # of times incontinent of 2 / 2 urine Other: Meal (2) Ice Cream, 1 fruit cup Breakfast Percent of Meal Consumed 100% 100% Feeding Ability Independent Independent # Voids 2 Weight 190 lb Additional comments: Constitutional; Afebrile, cooperative, alert, not in distress. Eyes- No icterus, Pupils equal, reactive, No periorbital swelling Ears- Ext ear normal, hearing normal to conversation. Neck- Midline trachea, supple Respiratory system: Air Entry equal on both sides, No crackles or wheezing, no rhonchi. CVS- Rate rhythm regular, S1,S2 heard, no gallop, no rub. Abdomen- Soft nontender abdomen, no organomegaly, no tenderness, no guarding or rigidity, SAFETY ADMIN ASSISTANT- AOOx3, moving all extremities, no focal deficit noted. lower extremities 3/ 5 bilateral Medical - DS: Data Labs on day of discharge: Labs from last 24 hours 09/06/16 09/06/16 04:00 04:00 WBC 6.5 RBC 2.63 L Hgb 8.5 L Hct 27.0 L MCV 102.7 H MCH 32.5 MCHC 31.7 RDW 16.1 H Plt Count 187 MPV 9.1 Gran % 58.1 Lymph % (Auto) 32.1 [place] % (Auto) 8.3 Eos % (Auto) 1.1 Baso % (Auto) 0.4 Gran # 3.8 Lymph # 2.1 [place] # 0.5 Eos # 0.1 Baso # 0 Sodium 142 Potassium 4.7 Chloride 100 Carbon Dioxide 34 H Anion Gap 8.0 BUN 12 Creatinine 0.8 GFR Calculation 68 Glucose 114 H Uric Acid 5.8 Calcium 9.7 Phosphorus 4.4 Magnesium 1.8 Total Bilirubin 0.2 Direct Bilirubin < 0.2 GGT 14 AST 17 ALT 10 Alkaline Phosphatase 44 Lactate Dehydrogenase 135 Total Protein 5.9 Albumin 3.3 Globulin 2.6 Albumin/Globulin Ratio 1.3 Triglycerides 267 H Preliminary micro results at discharge 09/04/16 13:09 Urine Culture - Preliminary Urine - Clean Void Mid-Stream Gram negative bacillus Medical - DS: A/P - Patient/Caregiver Discharge Instructions Activity: as per physical therapy, increase activity as tolerated Diet: Consistent Carbohydrate Additional Instructions: Follow up with PCP in 7-10 days Go to the ER if fever, chest pain, shortness of breath. Or any new concerning symptom. Take antibiotics for additional 5 days. - Problem Maintenance (1) Urinary tract infection Status: Acute (2) Weakness of both lower extremities Status: Acute (3) Diabetes mellitus, type II Status: Acute (4) Emphysematous COPD Status: Acute Qualifiers: Emphysema type: unspecified Qualified Code(s): J43.9 - Emphysema, unspecified - Follow up Plan Follow up with: Modesto Rivas MD [Primary Care Provider] - Disposition: Home Health Service Prognosis: Fair Rehab Potential: Fair I certify that the patient requires SNF services: No Overall status at discharge: patient is progressing back to baseline Medical - DS: Qual - VTE Deep Vein Thrombosis/Pulmonary Embolism Present on Admission: No
== END 2016-09-06 13:48 | disposition home health service (06) ==
LOC: MEDSUR 23:10 → ED 23:10 → MEDSUR 09-04 12:15
PROVIDERS: ADMIT Internal Medicine; ATTEND Internal Medicine